=== PATIENT | male | born 1990 | race Two or more races ===

== ENCOUNTER 2024-06-15 15:55 | Emergency (ER) | payer SELFPAY ==
[~2024-06-15] VITALS: Ht 170.2 cm; Wt 95.7 kg
[2024-06-15] MEDS ORDERED: cloNIDine HCL 0.1 MG TAB PO ONE (16:15)
[2024-06-15 16:59] LABS: Eosinophils # (auto) 0.1 10 ^3/uL (0-0.8); Eosinophils % (auto) 0.4 % (0.0-7.0); Lymphocytes # (auto) 4.3 10 ^3/uL (0.4-5.4)
[2024-06-15 17:01] LABS: Basophils # (auto) 0 10 ^3/uL (0-0.2); Basophils % (auto) 0.2 % (0.0-2.0); Hematocrit 51.4 % (41.0-53.0); Hemoglobin 17.9 g/dL (13.5-17.5); Lymphocytes % (auto) 28.1 % (10.0-50.0); Mean Corpuscular Hemoglobin 31.1 pg (28.0-32.0); Mean Corpuscular Hgb Conc. 34.9 g/dL (32.0-36.0); Mean Corpuscular Volume 89.2 fL (80.0-100.0); Monocytes # (auto) 0.9 10 ^3/uL (0-1.3); Monocytes % (auto) 5.7 % (0.0-12.0); Neutrophils # (auto) 10.1 10 ^3/uL (1.6-8.6); Neutrophils % (auto) 65.6 % (37.0-80.0); Nucleated Red Blood Cells % 0.1 %; Platelet Count (auto) 285 10^3/uL (140-450); Red Blood Cells 5.77 10^6/uL (4.5-5.90); Red Cell Distribution Width 13.5 % (11.8-14.3); White Blood Cell 15.4 10^3/uL (4.4-10.8)
[2024-06-15 17:57] LABS: Alanine Aminotransferase 185 U/L (7-40); Albumin 5.6 g/dL (3.2-4.8); Alkaline Phosphatase 187 U/L (46-116); Anion Gap 9 (5-15); Aspartate Aminotransferase 62 U/L (13-40); BUN/Creatinine Ratio 15.8 (10.0-20.0); Bilirubin, Total 1.2 mg/dL (0.2-1.0); Blood Urea Nitrogen 19 mg/dL (9-23); Carbon Dioxide 27 mmol/L (20-30); Chloride 102 mmol/L (98-107); Glucose 110 mg/dL (74-106); Potassium 4.1 mmol/L (3.5-5.1); Sodium 138 mmol/L (136-145); Total Protein 8.8 g/dL (5.7-8.2)
[2024-06-15] MEDS: cloNIDine HCL 0.1 MG TAB PO ONE (18:04)
[2024-06-15] MEDS: SODIUM CHLORIDE 0.9% 1,000 ML IV ONE (18:25)
[2024-06-15] MEDS: MORPHINE SULFATE 4 MG/ML SYR/VIAL IV ONE (18:31)
[2024-06-15] MEDS: ONDANSETRON HCL 4 MG/2 ML VIAL IV ONE (18:31)
[2024-06-15 18:38] VITALS: PULSE 121; RESP 18; O2SAT 97
[2024-06-15] MEDS ORDERED: LOSA-534 PO (23:55)
[2024-06-16 01:17] VITALS: BP 145/100; PULSE 104; RESP 20; TEMP 97.8; O2SAT 98
[2024-06-16] MEDS: LABETALOL HCL 20 MG/4 ML VL IV ONE (01:40)
== END 2024-06-16 02:03 | disposition home or self-care (01) ==
LOC: ER 15:55
DX: S06.4X0A Epidural hemorrhage without loss of consciousness, initial encounter (principal); I10 Essential (primary) hypertension; X58.XXXA Exposure to other specified factors, initial encounter; Y93.89 Activity, other specified; Y92.89 Other specified places as the place of occurrence of the external cause; Y99.8 Other external cause status
CPT/HCPCS: 36415; 70450; 80053; 84484; 85025; 96361; 96374; 96375; 99285; J2270; J2405; J7030